=== PATIENT | female | born 1970 | race African-American/Black ===

== ENCOUNTER 2018-04-09 05:09 | Inpatient (IN) ==
--- NOTE | 2018-04-04 08:50 | EKG Report ---
Test Performed on : 04/04/2018 08:40:11 AM Test Reason : pat Blood Pressure : / mmHG Vent. Rate : 078 BPM Atrial Rate : 078 BPM P-R Int : 166 ms QRS Dur : 084 ms QT Int : 364 ms P-R-T Axes : 067 048 042 degrees QTc Int : 414 ms Normal sinus rhythm. Normal ECG When compared with ECG of 09-JUN-2017 19:46, No significant change was found Confirmed by Federico HERNÁNDEZ, Mark Parker ([id number]) on 04/04/2018 5:34:09 PM
[2018-04-04 09:05] LABS: URINE SOURCE CLEAN CATCH
[2018-04-04 09:12] LABS: BILIRUBIN URINE NEGATIVE (NEGATIVE); BLOOD URINE SMALL (NEGATIVE); COLOR YELLOW; GLUCOSE URINE NEGATIVE (NEGATIVE); KETONE URINE NEGATIVE (NEGATIVE); LEUKOCYTES URINE MODERATE (NEGATIVE); NITRITE URINE NEGATIVE (NEGATIVE); PH URINE 5.5; PROTEIN URINE NEGATIVE (NEGATIVE); SP GRAVITY URINE 1.019; TURBIDITY URINE CLEAR (CLEAR); UROBILINOGEN URINE NORMAL (NORMAL)
[2018-04-04 09:13] LABS: BASO# 0.01 X1000 (0.0-0.2); BASO% 0.2 % (0.0-0.8); EOS# 0.08 X1000 (0.0-0.7); EOS% 1.7 % (0.0-10.0); HEMATOCRIT 38.8 % (37.0-47.0); HEMOGLOBIN 12.4 g/dL (12.0-16.0); LYMPH# 2.28 X1000 (1.2-3.4); LYMPH% 48.8 % (20.5-51.1); MCV 90.9 FL (81-99); MONO% 8.6 % (1.7-9.3); MPV 9.9 FL (7.4-10.4); NEUT% 40.7 % (42.2-75.2); PLT 244 X1000 (130-400); RBC 4.27 XMIL (4.2-5.4); RDW 14.2 % (11.5-14.5); WBC 4.67 X1000 (4.8-10.8)
[2018-04-04 09:14] LABS: UR EPITHELIAL CELLS <10 /HPF (<10); URINE BACTERIA NEGATIVE /HPF; URINE RBC <10 /HPF (<10)
[2018-04-04 09:23] LABS: INR 0.85; PROTIME 12.3 Seconds (11.0-16.0); PTT 28.5 Seconds (22.3-41.8)
[2018-04-04 09:29] LABS: AGAP 9; BUN 13 mg/dL (8-22); CALCIUM 8.4 mg/dL (8.8-10.2); CHLORIDE 105 mmol/L (98-107); COSMO 283; CREATININE 0.7 mg/dL (0.5-0.9); ESTIMATED GFR > 60; GLUCOSE 91 mg/dL (70-104); POTASSIUM 4.7 mmol/L (3.5-5.1); SODIUM 142 mmol/L (136-145); TCO2 28 mmol/L (25-35)
[2018-04-09] MEDS ORDERED: DIPRIVAN 1% ONE (06:28)
[2018-04-09] MEDS ORDERED: FENTANYL ONE (06:28)
[2018-04-09] MEDS ORDERED: QUELICIN (DOSE) ONE (06:30)
[2018-04-09] MEDS ORDERED: SODIUM CHLORIDE 0.9% 10 ML ONE (06:30)
[2018-04-09] MEDS ORDERED: XYLOCAINE-MPF 2% ONE (06:30)
[2018-04-09] MEDS ORDERED: NORCURON ONE (06:30)
[2018-04-09] MEDS ORDERED: COLACE ONE (06:36)
[2018-04-09] MEDS ORDERED: LR 1,000 ML ONE (06:36)
[2018-04-09] MEDS ORDERED: PEPCID ONE (06:36)
[2018-04-09] MEDS ORDERED: LYRICA ONE (06:36)
[2018-04-09] MEDS ORDERED: REGLAN ONE (06:36)
[2018-04-09] MEDS ORDERED: KEFZOL 1 GM/D5W 1 GM/50 ML IVPB ONE (06:36)
[2018-04-09] MEDS ORDERED: CELEBREX ONE (06:36)
[2018-04-09] MEDS ORDERED: SENSORCAINE-MPF 0.5%/EPI 1:200,000 ONE (06:59)
[2018-04-09] MEDS ORDERED: CYKLOKAPRON 1,000 MG/NS 1,000 MG/100 ML IVPB ONE (06:59)
[2018-04-09] MEDS ORDERED: DURAMORPH ONE (06:59)
[2018-04-09] MEDS ORDERED: SODIUM CHLORIDE 0.9% ONE (06:59)
[2018-04-09] MEDS ORDERED: TORADOL ONE (06:59)
[2018-04-09] MEDS ORDERED: EXPAREL 1.3% ONE (07:00)
[2018-04-09] MEDS ORDERED: NEOSPORIN G.U. IRRIGANT ONE (07:00)
[2018-04-09] MEDS ORDERED: DECADRON ONE (08:00)
[2018-04-09] MEDS ORDERED: OFIRMEV 1000 MG/ISOTONIC SOLN 1,000 MG/100 ML BOTTLE ONE (08:00)
[2018-04-09] MEDS ORDERED: ZOFRAN ONE (08:00)
[2018-04-09 09:09] LABS: URINE SOURCE CATH
[2018-04-09 09:17] LABS: BILIRUBIN URINE NEGATIVE (NEGATIVE); BLOOD URINE TRACE (NEGATIVE); COLOR YELLOW; GLUCOSE URINE NEGATIVE (NEGATIVE); KETONE URINE NEGATIVE (NEGATIVE); LEUKOCYTES URINE LARGE (NEGATIVE); NITRITE URINE NEGATIVE (NEGATIVE); PROTEIN URINE NEGATIVE (NEGATIVE); SP GRAVITY URINE 1.017; TURBIDITY URINE CLEAR (CLEAR); UROBILINOGEN URINE NORMAL (NORMAL)
[2018-04-09 09:19] LABS: UR EPITHELIAL CELLS <10 /HPF (<10); URINE BACTERIA NEGATIVE /HPF; URINE RBC <10 /HPF (<10); URINE WBC 20-40 /HPF (<10)
[2018-04-09] MEDS ORDERED: NS 1,000 ML ONE (10:00)
[2018-04-09] MEDS: DILAUDID ONE ×4 (10:05→10:14)
--- NOTE | 2018-04-09 10:28 | OPERATIVE NOTE ---
PROCEDURE DATE: 04/09/2018 PREOPERATIVE DIAGNOSIS: Right hip degenerative joint disease. POSTOPERATIVE DIAGNOSIS: Right hip degenerative joint disease. PROCEDURE: Right anterior total hip arthroplasty using a [facility] size 52 hemispherical shell for the acetabulum with a 6.5 cancellous screw of 20 mm posteriorly, superiorly and 40 mm superiorly, a 36 mm acetabular liner, a size 6 standard offset femoral head with a -4, 36 mm ceramic head. ANESTHESIA: General. SURGEON: Carlotn Robbins MD. SENIOR PROJECT ACCOUNTANT: Sheeba Snow PA-C. COMPLICATIONS: None. BLOOD LOSS: Minimal. DRAINS: Hemovac x1. DESCRIPTION OF PROCEDURE: The patient brought to the operative suite and placed in the supine position. After successful administration of spinal anesthesia, the patient was placed on the OSI table in the usual position for left hip. The left hip was then prepped and draped in usual sterile fashion. A longitudinal incision was made beginning 3 cm distal and 3 cm lateral to the anterior superior iliac spine, seen distally and slightly laterally 8 cm, dissected sharply through skin and subcutaneous tissue down tensor fascia. The tensor fascia was incised and dissected bluntly down deep tensor fascia. Deep tensor fascia was incised, and the circumflex vessels were electrocauterized exposing the anterior capsule. A T capsulotomy was performed exposing the femoral neck. The femoral neck cut was made with oscillating saw. The femoral head was removed with power corkscrew. The labrum was resected sharply. The acetabulum was serially reamed to a size 52 to accept a 52 cup. The 52 cup was then driven into place in the proper amount inclination and anteversion and two 6.5 cancellous screws were placed, a 40 mm superiorly and 20 mm posterior, superiorly. Once this was all verified to be in good position, the liner was locked onto the cup. Attention was then directed to the femur. It was externally rotated, extended, adducted, and elevated out of the wound with the hook on the OSI bed. The lateral neck was rongeured. The canal was serially broached to a size 6. A size 6 standard offset -4, 36 mm head was trialed and found be excellent fit, offset, and stability of the hip. The trial was then removed. The definitive stem was seated on the femur, and the ceramic head was seated on the Herzog taper, and the hip was reduced. It was again found to be in excellent position. The hip was copiously infiltrated with Exparel, including the posterior capsule, anterior capsule, intermuscular and subcutaneous tissue. The anterior capsule was repaired with 0 V-Loc suture. A drain was placed deep to the tensor fascia, and then the tensor fascia was closed with a 0 V-Loc suture. Skin edge approximated 2-0 Vicryl. Skin was closed with 4-0 Monocryl and Prineo. A sterile dressing was applied. The patient tolerated the procedure well without complication. At the end of the procedure, all counts correct x2. The patient was transferred to the recovery room in stable condition. cc: Carlton Robbins MD
[2018-04-09] MEDS ORDERED: ZOFRAN IV PRN (10:41)
[2018-04-09] MEDS ORDERED: OXY IR PO PRN (10:41)
[2018-04-09] MEDS ORDERED: MORPHINE IV PRN (10:41)
[2018-04-09] MEDS ORDERED: CYKLOKAPRON 1,000 MG in NS 100 ML IV ONE (13:30)
[2018-04-09] MEDS: PYRIDIUM PO SCH ×2 (14:16→14:23)
[2018-04-09] MEDS: NS 1,000 ML IV SCH (14:16)
[2018-04-09] MEDS: OXY IR PO PRN ×2 (14:21→19:22)
[2018-04-09] MEDS: KEFZOL 1 GM/D5W 1 GM/50 ML IVPB IV SCH (15:19)
[2018-04-09] MEDS: ULTRAM PO SCH ×2 (15:19→20:10)
[2018-04-09] MEDS: TYLENOL PO SCH ×2 (15:19→20:11)
[2018-04-09] MEDS: PERIDEX MT SCH (20:09)
[2018-04-09] MEDS: LYRICA PO SCH (20:10)
[2018-04-09] MEDS: CELEBREX PO SCH (20:10)
[2018-04-09] MEDS: COLACE PO SCH (20:10)
[2018-04-09] MEDS: MACROBID PO SCH (20:11)
[2018-04-09] MEDS: TEGRETOL PO SCH (20:12)
[2018-04-09] MEDS ORDERED: WELLBUTRIN SR PO SCH (21:00)
[2018-04-09] MEDS ORDERED: SAPHRIS SL SCH (21:00)
[2018-04-10] MEDS: OXY IR PO PRN ×4 (00:16→17:19)
[2018-04-10] MEDS: KEFZOL 1 GM/D5W 1 GM/50 ML IVPB IV SCH (00:17)
[2018-04-10] MEDS: ULTRAM PO SCH ×3 (03:59→14:52)
[2018-04-10] MEDS: TYLENOL PO SCH ×3 (03:59→14:51)
[2018-04-10] MEDS: NS 1,000 ML IV SCH (03:59)
[2018-04-10] MEDS ORDERED: XARELTO PO SCH (06:00)
[2018-04-10 06:23] LABS: HEMATOCRIT 31.4 % (37.0-47.0); HEMOGLOBIN 9.8 g/dL (12.0-16.0)
[2018-04-10 06:32] LABS: AGAP 8; BUN 16 mg/dL (8-22); CHLORIDE 104 mmol/L (98-107); COSMO 279; CREATININE 0.8 mg/dL (0.5-0.9); ESTIMATED GFR > 60; GLUCOSE 104 mg/dL (70-104); POTASSIUM 3.7 mmol/L (3.5-5.1); SODIUM 139 mmol/L (136-145); TCO2 27 mmol/L (25-35)
[2018-04-10] MEDS ORDERED: PRILOSEC PO SCH (07:00)
--- NOTE | 2018-04-10 08:25 | DISCHARGE SUMMARY ---
ADMISSION DATE: 04/09/2018 DISCHARGE DATE: 04/10/2018 DISCHARGE DIAGNOSIS: Left hip degenerative joint disease status post left anterior total hip arthroplasty. DISCHARGE MEDICATION: See discharge med list. DISPOSITION: The patient is discharged home with instructions for home physical therapy. Instructed to return for any signs or symptoms of infection or deep venous thrombosis. Instructed to return to see Dr. oRbbins next . HOSPITAL COURSE: On the day of admission, patient underwent a left total hip arthroplasty. Her postoperative course was unremarkable. At discharge, she is afebrile, tolerating a regular diet, ambulating well with physical therapy. Her wound is clean, dry, and intact without sign of infection. She is discharged home in stable condition with instructions to follow up as described above. cc: Carlton Robbins MD
[2018-04-10] MEDS: LYRICA PO SCH (08:31)
[2018-04-10] MEDS: COLACE PO SCH (08:32)
[2018-04-10] MEDS: CELEBREX PO SCH (08:32)
[2018-04-10] MEDS: TEGRETOL PO SCH (08:32)
[2018-04-10] MEDS: MACROBID PO SCH (08:33)
[2018-04-10] MEDS: PERIDEX MT SCH (08:34)
[2018-04-10] MEDS ORDERED: GEODON PO SCH (09:00)
[2018-04-10] MEDS ORDERED: LOXITANE PO SCH (09:00)
[2018-04-10] MEDS ORDERED: FENOPROFEN CALCIUM 600 MG PO SCH (09:00)
[2018-04-10] MEDS ORDERED: ZOLOFT PO SCH (09:00)
[2018-04-10] MEDS ORDERED: ADDERALL XR PO SCH (09:00)
[2018-04-10] MEDS ORDERED: DECADRON IV ONE (09:00)
[2018-04-10 16:02] VITALS: BP 118/71
== END 2018-04-10 17:26 | disposition home or self-care (01) | DRG 470 ==
LOC: SURHOLD 05:09 → 4N 07:27
PROVIDERS: ADMIT Orthopaedic Surgery; ATTEND Orthopaedic Surgery
CPT/HCPCS: 76000; 80048; 81001; 85014; 85018; 85025; 85610; 85730; 86850; 86900; 86901; 87088; 88304; 88311; 93005; 93010; 94799; 97116; 97162; A9270; C9290; J0131; J0330; J0690; J1100; J1170; J1885; J2274; J2275; J2405; J3010; J7030; J7120; Q9974